=== PATIENT | male | born 2000 | race Hispanic/Latino ===

== ENCOUNTER 2021-11-28 15:07 | Emergency (ER) | payer MEDICAID ==
[~2021-11-28] VITALS: Ht 172.7 cm; Wt 72.6 kg
[2021-11-28] MEDS ORDERED: LIDOCAINE HCL 400MG/20ML VIAL ONE (16:26)
[2021-11-28] MEDS ORDERED: CEPHALEXIN 500 MG CAPSULE PO ONE (16:30)
[2021-11-28] MEDS ORDERED: TETANUS/DIPHTHERIA TOXOID [ADULT] 0.5 ML VIAL IM ONE (16:30)
[2021-11-28] MEDS ORDERED: IBUPROFEN 600 MG TABLET PO ONE (16:30)
[2021-11-28] MEDS ORDERED: CEPH500B PO (16:45)
[2021-11-28] MEDS ORDERED: IBUP-2070 PO (16:45)
[2021-11-28 17:18] VITALS: BP 110/82
== END 2021-11-28 17:22 | disposition home or self-care (01) ==
LOC: EDH 15:07
DX: S61.412A Laceration without foreign body of left hand, initial encounter (principal); W26.8XXA Contact with other sharp object(s), not elsewhere classified, initial encounter; Y93.89 Activity, other specified; Y92.89 Other specified places as the place of occurrence of the external cause; Y99.8 Other external cause status
CPT/HCPCS: 12001; 90471; 90714; 99283; J3490